=== PATIENT | female | born 1960 | race Caucasian/White ===

== ENCOUNTER 2017-02-27 16:55 | Emergency (ER) | payer MEDICARE, MEDICAID ==
[~2017-02-27 16:55] MED LIST: AMBIEN 10MG10 MG PO; COLACE 100100 MG/CAP PO; COUMADIN 77.5 MG/TAB PO; IRON325 MG PO; KLONOPIN 0.5MG0.5 MG; KLONOPIN 0.5MG0.5 MG PO; KLONOPIN 1MG1 MG PO; LEXAPRO 10MG10 MG PO; LEXAPRO20 MG PO; MOBIC 7.5MG7.5 MG PO; MULTI VITAMINS1 TAB PO; PEPCID 20MG TAB20 MG PO; PERCR 7.5 PO; PRINIVIL10 MG PO; PROVERA 2.5MG2.5 MG; SEROQUEL 1100 MG/TAB PO; SEROQUEL50 MG PO; Trazadone PO; VICODIN 5/5001 UDTAB PO; WELLBUTRIN XL300 M1 PO; XANAX 0.5MG0.5 MG PO; [UNRECOGNIZED DRUG - OTHER] PO
[2017-02-27 16:59] VITALS: TEMP 98.9
[2017-02-27 18:42] LABS: PH 6 (5-8); SQUAMOUS EPITHELIAL None Seen /hpf; URINE APPEARANCE Clear; URINE BACTERIA None Seen /hpf; URINE BILIRUBIN Negative (NEGATIVE); URINE BLOOD 1+ (NEGATIVE); URINE COLOR Straw; URINE GLUCOSE Negative (NEGATIVE); URINE KETONE Trace (NEGATIVE); URINE RBC 0-2 /hpf; URINE UROBILINOGEN Negative (NEGATIVE); URINE WBC 0-2 /hpf
[2017-02-27 19:24] VITALS: BP 140/80; PULSE 106
== END 2017-02-27 19:25 | disposition home or self-care (01) ==
LOC: COL.ER 16:55
PROVIDERS: Physician Assistant
DX: S70.01XA Contusion of right hip, initial encounter (principal); W05.0XXA Fall from non-moving wheelchair, initial encounter; Y92.002 Bathroom of unspecified non-institutional (private) residence as the place of occurrence of the external cause; I10 Essential (primary) hypertension; I69.854 Hemiplegia and hemiparesis following other cerebrovascular disease affecting left non-dominant side; Z87.820 Personal history of traumatic brain injury

== ENCOUNTER 2017-11-15 16:40 | Observation (INO) | payer MEDICARE, MEDICAID ==
[~2017-11-15] VITALS: Ht 165.1 cm; Wt 65.5 kg
[~2017-11-15 16:40] MED LIST changes: -KLONOPIN 0.5MG0.5 MG; +PERCOCET 325 MG1 TA3 PO; -PERCR 7.5 PO; +PRINIVIL40 MG PO
[2017-11-15 17:47] LABS: BASO % 0.5 % (0.0-2.0); EOS # 0.2 (0.0-0.7); EOS % 3.6 % (0-4.0); GRAN # 2.3 (1.4-6.5); GRAN % 56.5 % (42.2-75.2); HEMATOCRIT 33.8 % (37.0-47.0); HEMOGLOBIN 11.7 g/dl (12.5-16.0); LYMPH % 23.2 % (20.0-51.0); MEAN CELL VOLUME 89 fl (80.0-100.0); MEAN CORPUSCULAR HEMOGLOBIN 31 pg (27.0-31.0); MEAN CORPUSCULAR HGB CONC 35 g/dl (33.0-37.0); MEAN PLATELET VOLUME 8.9 fl (7.4-10.4); MONO # 0.7 (0.1-0.6); MONO % 15.7 % (1.7-9.3); PLATELET COUNT 222 K/mm3 (130-400); RED BLOOD COUNT 3.82 M/mm3 (4.10-5.30); REDCELL DISTRIBUTION WIDTH-CV 12.4 % (11.5-14.5)
[2017-11-15 17:51] LABS: ALANINE AMINOTRANSFERASE 45 U/L (9-52); ALBUMIN 4.4 gm/dL (3.5-5.0); ALKALINE PHOSPHATASE 64 U/L (50-136); ANION GAP 7 mmol/L (7-16); AST,SGOT 37 U/L (15-37); BILIRUBIN,TOTAL 0.5 mg/dL (0.0-1.0); BLOOD UREA NITROGEN 6 mg/dL (7-17); CALCIUM 9.1 mg/dL (8.4-10.2); CARBON DIOXIDE 28 mmol/L (22-30); GLUCOSE 88 mg/dL (74-106); LIPASE 29 U/L (23-300); POTASSIUM 3.9 mmol/L (3.4-5.0); SODIUM 123 mmol/L (137-145); TOTAL PROTEIN 7.1 gm/dL (6.4-8.2)
[2017-11-15 17:55] LABS: C-REACTIVE PROTEIN < 0.5 mg/dL (0.0-0.9); CHLORIDE 88 mmol/L (98-107)
[2017-11-15 20:09] VITALS: BP 145/81; PULSE 79; TEMP 97.5
[2017-11-15] MEDS ORDERED: GABAPENTIN PO (20:45)
[2017-11-15] MEDS ORDERED: RESTORIL 1515 MG/CAP PO (20:49)
[2017-11-15] MEDS ORDERED: NEURONTIN600 MG/TAB PO (21:02)
[2017-11-15] MEDS ORDERED: KLONOPIN 1MG1 MG PO (21:04)
[2017-11-15] MEDS ORDERED: LIORESAL 1010 MG/TAB PO (21:06)
[2017-11-15 21:08] LABS: COLLECTION METHOD CLEAN CATCH
[2017-11-15 21:12] LABS: PH 7 (5-8); URINE APPEARANCE Clear; URINE BILIRUBIN Negative (NEGATIVE); URINE BLOOD 2+ (NEGATIVE); URINE COLOR Yellow; URINE GLUCOSE Negative (NEGATIVE); URINE KETONE Negative (NEGATIVE); URINE LEUKOCYTE ESTERASE Negative (NEGATIVE); URINE NITRATE Negative (NEGATIVE); URINE PROTEIN(semi-quant) Negative (NEGATIVE); URINE UROBILINOGEN Negative (NEGATIVE)
[2017-11-15 21:37] LABS: URINE BACTERIA Rare /hpf
[2017-11-15 23:51] VITALS: BP 94/52; PULSE 77; TEMP 96.6
[2017-11-16 03:02] VITALS: BP 109/73; PULSE 70; TEMP 96.7
[2017-11-16 06:29] LABS: BASO % 0.7 % (0.0-2.0); EOS # 0.1 (0.0-0.7); EOS % 3.9 % (0-4.0); GRAN # 1.5 (1.4-6.5); GRAN % 51.5 % (42.2-75.2); LYMPH # 0.8 (1.2-3.4); LYMPH % 29.4 % (20.0-51.0); MEAN CELL VOLUME 90 fl (80.0-100.0); MEAN CORPUSCULAR HGB CONC 34 g/dl (33.0-37.0); MEAN PLATELET VOLUME 8.6 fl (7.4-10.4); MONO # 0.4 (0.1-0.6); MONO % 13.8 % (1.7-9.3); PLATELET COUNT 217 K/mm3 (130-400); RED BLOOD COUNT 3.76 M/mm3 (4.10-5.30); REDCELL DISTRIBUTION WIDTH-CV 12.7 % (11.5-14.5)
[2017-11-16 06:30] LABS: HEMATOCRIT 33.9 % (37.0-47.0); HEMOGLOBIN 11.4 g/dl (12.5-16.0); MEAN CORPUSCULAR HEMOGLOBIN 30 pg (27.0-31.0)
[2017-11-16 06:48] LABS: CALCIUM 8.7 mg/dL (8.4-10.2); CREATININE, serum 0.56 mg/dL (0.52-1.25); POTASSIUM 3.8 mmol/L (3.4-5.0)
[2017-11-16 07:00] VITALS: BP 142/72; PULSE 77; TEMP 98.2
[2017-11-16 11:13] VITALS: BP 138/70; PULSE 88; TEMP 98
[2017-11-16 16:42] VITALS: BP 158/83; PULSE 93; TEMP 97.6
[2017-11-16 19:25] VITALS: BP 153/80; PULSE 97; TEMP 98
[2017-11-17 00:18] VITALS: BP 158/88; PULSE 108; TEMP 97.9
[2017-11-17 04:52] VITALS: BP 153/80; PULSE 88; TEMP 97.4
[2017-11-17 07:00] LABS: BASO % 0.5 % (0.0-2.0); EOS # 0.1 (0.0-0.7); EOS % 1.1 % (0-4.0); GRAN # 3.2 (1.4-6.5); GRAN % 73.7 % (42.2-75.2); LYMPH # 0.6 (1.2-3.4); LYMPH % 14.6 % (20.0-51.0); MEAN CELL VOLUME 88 fl (80.0-100.0); MEAN CORPUSCULAR HGB CONC 34 g/dl (33.0-37.0); MEAN PLATELET VOLUME 8.8 fl (7.4-10.4); MONO # 0.4 (0.1-0.6); MONO % 9.6 % (1.7-9.3); PLATELET COUNT 217 K/mm3 (130-400); RED BLOOD COUNT 3.78 M/mm3 (4.10-5.30); REDCELL DISTRIBUTION WIDTH-CV 12.5 % (11.5-14.5)
[2017-11-17 07:03] LABS: CALCIUM 8.5 mg/dL (8.4-10.2); CREATININE, serum 0.48 mg/dL (0.52-1.25); POTASSIUM 3.6 mmol/L (3.4-5.0)
[2017-11-17 07:14] LABS: MAGNESIUM 1.7 mg/dL (1.6-2.3)
[2017-11-17 07:23] LABS: HEMATOCRIT 33.3 % (37.0-47.0); HEMOGLOBIN 11.3 g/dl (12.5-16.0); MEAN CORPUSCULAR HEMOGLOBIN 30 pg (27.0-31.0)
[2017-11-17 08:26] VITALS: BP 160/86; PULSE 91; TEMP 97.6
== END 2017-11-17 10:45 | disposition home or self-care (01) ==
LOC: COL.ER 16:40 → MEDICAL 18:14 → COL.ER 20:00 → MEDICAL 11-17 10:45
PROVIDERS: Family Medicine; Nurse Practitioner; Nurse Practitioner Family
DX: K52.9 Noninfective gastroenteritis and colitis, unspecified (principal); E87.1 Hypo-osmolality and hyponatremia; E87.8 Other disorders of electrolyte and fluid balance, not elsewhere classified; I69.354 Hemiplegia and hemiparesis following cerebral infarction affecting left non-dominant side; R53.81 Other malaise; I10 Essential (primary) hypertension; F32.9 Major depressive disorder, single episode, unspecified; G89.29 Other chronic pain; M79.605 Pain in left leg; G47.00 Insomnia, unspecified; K21.9 Gastro-esophageal reflux disease without esophagitis; Z79.01 Long term (current) use of anticoagulants; Z87.891 Personal history of nicotine dependence; Z88.0 Allergy status to penicillin
CPT/HCPCS: G0378; G8978-GP; G8979-GP; G8987-GO; G8988-GO; J2270; J2405; J7030